=== PATIENT | male | born 1970 ===

== ENCOUNTER 2023-11-23 01:29 | Inpatient (IN) | payer OTHER ==
[2023-11-23 03:08] LABS: BASO % 0.6 % (0-2.0); EOS % 1.4 % (0-4.5); HEMATOCRIT 27.7 % (35.4-49); HEMOGLOBIN 9.6 GM/dL (11.7-16.9); LYMPH % 14.6 % (8-40); MCH 33.6 pg (25.7-33.7); MCHC 34.5 g/dl (32.0-35.9); MEAN CELL VOLUME 97.2 fl (80-96); MEAN PLT VOLUME 7.4 fl (7.5-11.1); NEUT % 70.4 % (42.8-82.8); PLATELET COUNT 176 10^3/uL (134-434); RBC 2.85 M/mm3 (4.00-5.60); RDW 12.8 % (11.9-15.9)
[2023-11-23 03:17] LABS: INR 1.38 (0.83-1.09); PROTHROMBIN TIME (PATIENT) 15.4 SEC (9.7-13.0)
[2023-11-23 03:19] LABS: ACTIVATED PTT 41.3 SECONDS (25.2-36.5)
[2023-11-23 03:27] LABS: POTASSIUM 5.2 mmol/L (3.5-5.1)
[2023-11-23 03:29] LABS: ALBUMIN 3.6 g/dl (3.4-5.0); CALCIUM 8.1 mg/dL (8.5-10.1); MAGNESIUM 2.1 mg/dL (1.8-2.4)
[2023-11-23 03:30] LABS: BLOOD UREA NITROGEN 36.8 mg/dL (7-18)
[2023-11-23 03:33] LABS: CREATININE 5.3 mg/dL (0.55-1.3); PHOSPHOROUS 2.4 mg/dL (2.5-4.9)
[2023-11-23 03:34] LABS: BILIRUBIN,TOTAL 0.5 mg/dL (0.2-1); TOT PROT 7.2 g/dl (6.4-8.2)
[2023-11-23] MEDS ORDERED: LOPERAMIDE HCL 2 MG CAPSULE PO PRN (08:54)
[2023-11-23 09:16] VITALS: BMI 20.9
[2023-11-23] MEDS ORDERED: ASPIRIN 81 MG CHEWABLE TABLETS PO SCH (10:00)
[2023-11-23] MEDS: hydrALAZINE HCL 50 MG TABLET (FP) PO SCH (12:26)
[2023-11-23] MEDS: cloNIDine HCL 0.1 MG TABLET PO SCH (12:26)
[2023-11-23] MEDS: FERROUS SO4 325 MG TABLET (FP) PO SCH (12:27)
[2023-11-23] MEDS: ESCITALOPRAM OXALATE 10 MG TABLET PO SCH (12:27)
[2023-11-23] MEDS: FAMOTIDINE 20 MG TABLET PO ONE (12:28)
[2023-11-23] MEDS: INSULIN ASPART SLIDING SCALE (NOVOLOG) 1 VIAL SQ SCH (13:37)
[2023-11-23] MEDS: GABAPENTIN 100 MG CAPSULE PO SCH (13:50)
[2023-11-23] MEDS ORDERED: LIDOCAINE HCL 1%, 10 MG/ML (20ML VIAL) ONE (15:54)
[2023-11-23] MEDS: VANCOMYCIN/WATER FOR INJ (PEG) 1,000 MG/200 ML BAG IVPB ONE (18:09)
[2023-11-23] MEDS: ATORVASTATIN CA 10 MG TABLET (FP) PO SCH (22:34)
[2023-11-23] MEDS: hydrOXYzine PAMOATE 25 MG CAPSULE (FP) PO SCH (22:34)
[2023-11-24 09:08] LABS: BASO % 0.4 % (0-2.0); EOS % 2.9 % (0-4.5); HEMATOCRIT 28.7 % (35.4-49); HEMOGLOBIN 9.9 GM/dL (11.7-16.9); MCH 33.1 pg (25.7-33.7); MCHC 34.5 g/dl (32.0-35.9); MEAN CELL VOLUME 95.9 fl (80-96); MEAN PLT VOLUME 7.3 fl (7.5-11.1); NEUT % 66.7 % (42.8-82.8); PLATELET COUNT 205 10^3/uL (134-434); RDW 12.8 % (11.9-15.9); WHITE BLOOD COUNT 5.2 K/mm3 (4.0-10.0)
[2023-11-24 09:15] LABS: POTASSIUM 5.7 mmol/L (3.5-5.1)
[2023-11-24 09:18] LABS: CALCIUM 8.5 mg/dL (8.5-10.1)
[2023-11-24 09:19] LABS: BLOOD UREA NITROGEN 51.7 mg/dL (7-18)
[2023-11-24 09:22] LABS: CREATININE 6.8 mg/dL (0.55-1.3)
[2023-11-24] MEDS: FAMOTIDINE 10 MG TABLET PO SCH (14:07)
[2023-11-24] MEDS: FAMOTIDINE 20 MG TABLET PO SCH (14:12)
[2023-11-24] MEDS ORDERED: SODIUM CHLORIDE 250 ML IV PRN (15:00)
[2023-11-24] MEDS: EPOETIN ALFA-EPBX 2,000 UNIT/ML VIAL IVPUSH ONE (15:06)
[2023-11-24 18:08] VITALS: RESP 18
[2023-11-24 20:23] LABS: HEPATITIS B SURFACE AG CONFIRM CONFIRMED (NONREACTIVE)
[2023-11-25 10:09] LABS: BASO % 0.6 % (0-2.0); EOS % 2.9 % (0-4.5); HEMATOCRIT 27.8 % (35.4-49); HEMOGLOBIN 9.5 GM/dL (11.7-16.9); LYMPH % 21.4 % (8-40); MCHC 34.2 g/dl (32.0-35.9); MEAN CELL VOLUME 96.3 fl (80-96); MEAN PLT VOLUME 7.2 fl (7.5-11.1); MONO % 7.8 % (3.8-10.2); NEUT % 67.3 % (42.8-82.8); PLATELET COUNT 197 10^3/uL (134-434); RBC 2.89 M/mm3 (4.00-5.60); RDW 12.6 % (11.9-15.9); WHITE BLOOD COUNT 4.2 K/mm3 (4.0-10.0)
[2023-11-25 10:24] LABS: POTASSIUM 4.9 mmol/L (3.5-5.1)
[2023-11-25 10:28] LABS: CALCIUM 8.2 mg/dL (8.5-10.1)
[2023-11-25 10:29] LABS: ALBUMIN 3.2 g/dl (3.4-5.0); BLOOD UREA NITROGEN 34.3 mg/dL (7-18)
[2023-11-25 10:31] LABS: CREATININE 5.1 mg/dL (0.55-1.3)
[2023-11-25 10:33] LABS: TOT PROT 6.6 g/dl (6.4-8.2)
[2023-11-25 11:35] LABS: BILIRUBIN,TOTAL 0.5 mg/dL (0.2-1)
[2023-11-26 10:46] LABS: BASO % 0.7 % (0-2.0); EOS % 3.4 % (0-4.5); HEMATOCRIT 29.5 % (35.4-49); LYMPH % 27.2 % (8-40); MCH 32.5 pg (25.7-33.7); MCHC 33.8 g/dl (32.0-35.9); MEAN CELL VOLUME 96.3 fl (80-96); MEAN PLT VOLUME 7.1 fl (7.5-11.1); MONO % 4.7 % (3.8-10.2); PLATELET COUNT 246 10^3/uL (134-434); RBC 3.06 M/mm3 (4.00-5.60); RDW 12.8 % (11.9-15.9); WHITE BLOOD COUNT 4.6 K/mm3 (4.0-10.0)
[2023-11-26 11:01] LABS: POTASSIUM 5.4 mmol/L (3.5-5.1)
[2023-11-26 11:06] LABS: ALBUMIN 3.3 g/dl (3.4-5.0); CALCIUM 8.8 mg/dL (8.5-10.1)
[2023-11-26 11:07] LABS: BLOOD UREA NITROGEN 48.4 mg/dL (7-18)
[2023-11-26 11:10] LABS: CREATININE 6.7 mg/dL (0.55-1.3)
[2023-11-26 11:11] LABS: BILIRUBIN,TOTAL 0.5 mg/dL (0.2-1); TOT PROT 6.8 g/dl (6.4-8.2)
[2023-11-26 14:59] VITALS: BP 130/55; PULSE 61; TEMP 98.6
== END 2023-11-26 15:03 | DRG 314 ==
LOC: JER 01:29 → JERBED 02:35 → J5S 08:38
PROVIDERS: ADMIT Internal Medicine; ATTEND Family Medicine
PROC: 05PY33Z Removal of Infusion Device from Upper Vein, Percutaneous Approach (ICD-10-PCS; 2023-11-23)
PROC: 5A1D70Z Performance of Urinary Filtration, Intermittent, Less than 6 Hours Per Day (ICD-10-PCS; principal; 2023-11-24)
DX: T80.211A Bloodstream infection due to central venous catheter, initial encounter (principal); N18.6 End stage renal disease; I12.0 Hypertensive chronic kidney disease with stage 5 chronic kidney disease or end stage renal disease; R78.81 Bacteremia; D64.9 Anemia, unspecified; Y83.8 Other surgical procedures as the cause of abnormal reaction of the patient, or of later complication, without mention of misadventure at the time of the procedure; Z99.2 Dependence on renal dialysis
CPT/HCPCS: 0241U-QW; 36415; 71045-TC-FY; 80048; 80053; 82962; 83735; 84100; 85025; 85610; 85730; 86704; 86705; 86803; 86850; 86900; 86901; 87040; 87340; 87517; 99285-25; Q5106